=== PATIENT | female | born 1955 | race African-American/Black ===

== ENCOUNTER 2022-06-18 10:48 | Outpatient (CLI) | payer OTHER | END 2022-06-18 10:49 | disposition home or self-care (01) | LOC: CSHCP 10:48 | PROVIDERS: ATTEND Internal Medicine Critical Care Medicine | DX: J44.9 Chronic obstructive pulmonary disease, unspecified (principal); R94.2 Abnormal results of pulmonary function studies | CPT/HCPCS: 94060; 94726; 94729; 94760 ==